=== PATIENT | female | born 1965 | race Caucasian/White ===

== ENCOUNTER → 2018-06-07 | Outpatient (CLI) | payer BC ==
[2018-06-07 13:22] LABS: BASO % 0.4 % (0.0-2.0); EOS # 0.2 (0.0-0.7); GRAN # 5.2 (1.4-6.5); GRAN % 66.9 % (42.2-75.2); HEMATOCRIT 44.4 % (37.0-47.0); HEMOGLOBIN 15.1 g/dl (12.5-16.0); LYMPH # 1.6 (1.2-3.4); MEAN CELL VOLUME 85 fl (80.0-100.0); MEAN CORPUSCULAR HEMOGLOBIN 29 pg (27.0-31.0); MEAN CORPUSCULAR HGB CONC 34 g/dl (33.0-37.0); MEAN PLATELET VOLUME 9.1 fl (7.4-10.4); MONO # 0.7 (0.1-0.6); MONO % 9.3 % (1.7-9.3); PLATELET COUNT 203 K/mm3 (130-400); RED BLOOD COUNT 5.21 M/mm3 (4.10-5.30); REDCELL DISTRIBUTION WIDTH-CV 12.6 % (11.5-14.5)
[2018-06-07 13:37] LABS: ALBUMIN 4.1 gm/dL (3.5-5.0); BILIRUBIN,TOTAL 0.9 mg/dL (0.0-1.0); CALCIUM 9.2 mg/dL (8.4-10.2); CREATININE, serum 0.79 mg/dL (0.52-1.25); POTASSIUM 4.1 mmol/L (3.4-5.0); TOTAL PROTEIN 7.9 gm/dL (6.4-8.2)
== END ==
LOC: COL.LAB 13:00
PROVIDERS: Physician Assistant Medical
DX: R10.9 Unspecified abdominal pain (principal)

== ENCOUNTER → 2019-09-08 | Outpatient (CLI) | payer BC | LOC: BHSO 15:40 | DX: F50.89 Other specified eating disorder (principal) ==

== ENCOUNTER → 2019-10-01 | Outpatient (CLI) | payer BC | LOC: BHSO 13:56 | DX: F50.89 Other specified eating disorder (principal) ==

== ENCOUNTER → 2019-10-15 | Outpatient (CLI) | payer BC | LOC: BHSO 12:47 | DX: F41.1 Generalized anxiety disorder (principal) ==

== ENCOUNTER → 2019-12-05 | Outpatient (CLI) | payer BC | LOC: BHSO 12:59 | DX: F41.1 Generalized anxiety disorder (principal) ==

== ENCOUNTER → 2019-12-16 | Outpatient (CLI) | payer BC | LOC: BHSO 08:59 | DX: F50.81 Binge eating disorder (principal) ==

== ENCOUNTER → 2020-01-16 | Outpatient (CLI) | payer BC | LOC: BHSO 09:49 | DX: F50.81 Binge eating disorder (principal) ==

== ENCOUNTER → 2020-02-03 | Outpatient (CLI) | payer BC | LOC: BHSO 12:58 | DX: F50.81 Binge eating disorder (principal) ==

== ENCOUNTER → 2020-02-17 | Outpatient (CLI) | payer BC | LOC: BHSO 13:47 | DX: F50.89 Other specified eating disorder (principal) ==

== ENCOUNTER → 2020-03-02 | Outpatient (CLI) | payer BC | LOC: BHSO 12:58 | DX: F50.81 Binge eating disorder (principal) ==

== ENCOUNTER → 2020-03-16 | Outpatient (CLI) | payer BC | LOC: BHSO 12:59 | DX: F50.81 Binge eating disorder (principal) ==

== ENCOUNTER → 2020-03-30 | Outpatient (CLI) | payer BC | LOC: BHSO 12:58 | DX: F50.81 Binge eating disorder (principal) ==

== ENCOUNTER → 2020-04-20 | Outpatient (CLI) | payer BC | LOC: BHSO 12:58 | DX: F50.81 Binge eating disorder (principal) ==

== ENCOUNTER → 2020-05-11 | Outpatient (CLI) | payer BC | LOC: BHSO 12:58 | DX: F50.81 Binge eating disorder (principal) ==

== ENCOUNTER → 2020-06-01 | Outpatient (CLI) | payer BC | LOC: BHSO 12:53 | DX: F50.81 Binge eating disorder (principal) ==